=== PATIENT | female | born 1965 | race Caucasian/White ===

== ENCOUNTER 2016-11-21 11:57 | Day surgery (SDC) | payer BC ==
[~2016-11-21] VITALS: Ht 167.6 cm; Wt 90.7 kg
[~2016-11-21 11:57] MED LIST: AMOXICILLIN875 MG PO; ANTIVERT12.5 MG PO; CARAFATE1 GM PO; DEPO-MEDROL80 MG/ML IM; FLONASE NASAL50 MCG; FLUOXETINE HCL60 MG PO; LISINOP/HCTZ1 TA1 PO; MUCINEX600 MG PO; NAPROSYN500 MG PO; OMEPRAZOLE20 M2 PO; OMEPRAZOLE20 MG PO; PREDNISONE10 MG PO; PROAIR HFA IN; PROZAC20 M1 PO; PROZAC20 MG PO; PROZAC40 MG PO; RANITIDINE150 M1 PO; XANAX0.25 MG PO
[2016-11-21 15:13] VITALS: BP 130/75
== END 2016-11-21 15:55 | disposition home or self-care (01) | DRG 392 ==
LOC: ENDO 11:57
PROVIDERS: ATTEND Internal Medicine Gastroenterology
PROC: 0DBH8ZX Excision of Cecum, Via Natural or Artificial Opening Endoscopic, Diagnostic (ICD-10-PCS; principal; 2016-11-21)
PROC: 0DBE8ZX Excision of Large Intestine, Via Natural or Artificial Opening Endoscopic, Diagnostic (ICD-10-PCS; 2016-11-21)
DX: R19.7 Diarrhea, unspecified (principal); J44.9 Chronic obstructive pulmonary disease, unspecified; K92.1 Melena; R10.31 Right lower quadrant pain; R10.32 Left lower quadrant pain; D12.0 Benign neoplasm of cecum; K64.8 Other hemorrhoids; K64.4 Residual hemorrhoidal skin tags; K21.9 Gastro-esophageal reflux disease without esophagitis; F31.9 Bipolar disorder, unspecified; F17.210 Nicotine dependence, cigarettes, uncomplicated; J45.909 Unspecified asthma, uncomplicated

== ENCOUNTER 2017-01-09 15:00 | Day surgery (SDC) | payer BC ==
[~2017-01-09] VITALS: Ht 167.6 cm; Wt 90.7 kg
[2017-01-09 17:01] VITALS: BP 145/69
== END 2017-01-09 17:13 | disposition home or self-care (01) | DRG 391 ==
LOC: ENDO 15:00 → ORM 18:40 → ENDO 18:55 → ORM 19:15
PROVIDERS: ATTEND Internal Medicine Gastroenterology
PROC: 0DB98ZX Excision of Duodenum, Via Natural or Artificial Opening Endoscopic, Diagnostic (ICD-10-PCS; principal; 2017-01-09)
PROC: 0DB68ZX Excision of Stomach, Via Natural or Artificial Opening Endoscopic, Diagnostic (ICD-10-PCS; 2017-01-09)
PROC: 0DB48ZX Excision of Esophagogastric Junction, Via Natural or Artificial Opening Endoscopic, Diagnostic (ICD-10-PCS; 2017-01-09)
DX: K21.9 Gastro-esophageal reflux disease without esophagitis (principal); K29.51 Unspecified chronic gastritis with bleeding; K92.1 Melena; R19.7 Diarrhea, unspecified; R10.32 Left lower quadrant pain; R10.31 Right lower quadrant pain; Q40.8 Other specified congenital malformations of upper alimentary tract; K29.80 Duodenitis without bleeding; K44.9 Diaphragmatic hernia without obstruction or gangrene; K31.9 Disease of stomach and duodenum, unspecified; F31.9 Bipolar disorder, unspecified; K64.8 Other hemorrhoids; K64.4 Residual hemorrhoidal skin tags; Z86.010 Personal history of colon polyps

== ENCOUNTER 2020-09-18 06:48 | Emergency (ER) | payer BC ==
[~2020-09-18] VITALS: Ht 167.6 cm; Wt 100.0 kg
[2020-09-18 07:28] LABS: HEMATOCRIT 48.7 % (37.0-47.0); HEMOGLOBIN 15.8 g/dl (12.0-16.0); IMMATURE GRANULOCYTES 0.3 % (0.0-5.0); MEAN CELL VOLUME 100.2 fL CALC (80.0-100.0); MEAN CORPUSCULAR HGB 32.5 pG CALC (26.0-32.0); MEAN CORPUSCULAR HGB CONC 32.4 g/dL CAL (32.0-36.0); NEUT# 4.65 thou/uL (2.00-7.15); RED BLOOD COUNT 4.86 mill/uL (4.20-5.60); RED CELL DISTRI WIDTH 12.1 % (11.5-15.5)
[2020-09-18 08:00] LABS: ALBUMIN 4.3 g/dL (3.2-5.0); ALKALINE PHOSPHATASE 114 u/l (38-126); ANION GAP 11 (6-22 (CALC)); BILIRUBIN, TOTAL 0.5 mg/dL (0.0-1.4); BUN 10 mg/dL (7-17); BUN/CREATININE RATIO 12 (12-20 (CALC)); CARBON DIOXIDE 30 mmol/l (22-30); CHLORIDE 101 mmol/l (95-108); CREATININE 0.8 mg/dL (0.5-1.0); GFR > 60 ML/MIN (>=60 (CALC)); GFR FOR AFR.AMER. > 60 ML/MIN (>=60 (CALC)); POTASSIUM 4.6 mmol/l (3.5-5.1); SGOT/AST 29 u/l (14-36); SODIUM 137 mmol/l (137-146); TOTAL PROTEIN 7.5 g/dL (6.3-8.2)
[2020-09-18 08:01] LABS: LIPASE 76 u/l (23-300)
[2020-09-18 08:58] LABS: URINE BILIRUBIN - DIPSTICK NEGATIVE (NEGATIVE); URINE BLOOD DIPSTICK TRACE-LYSED (NEGATIVE); URINE COLOR YELLOW; URINE GLUCOSE - DIPSTICK NEGATIVE (NEGATIVE); URINE KETONE NEGATIVE (NEGATIVE); URINE LEUK ESTERASE NEGATIVE (NEGATIVE); URINE NITRITE - DIPSTICK NEGATIVE (Negative); URINE PH 5.5 (4.5-8.0); URINE PROTEIN - DIPSTICK NEGATIVE (NEG-TRACE); URINE SPECIFIC GRAVITY >=1.030; URINE UROBILINOGEN - DIPSTICK 0.2 E.U./dL (0.2)
[2020-09-18] MEDS ORDERED: IBUPROFEN600 MG PO (09:07)
[2020-09-18 09:13] VITALS: BP 156/83
== END 2020-09-18 09:20 | disposition home or self-care (01) | DRG 392 ==
LOC: ED 06:48
PROVIDERS: Student in an Organized Health Care Education/Training Program
DX: R10.9 Unspecified abdominal pain (principal); F32.9 Major depressive disorder, single episode, unspecified; F17.200 Nicotine dependence, unspecified, uncomplicated; R31.21 Asymptomatic microscopic hematuria; Z20.822 Contact with and (suspected) exposure to COVID-19